=== PATIENT | female | born 1965 | race Caucasian/White ===

== ENCOUNTER 2018-11-06 06:35 | Emergency (ER) | payer SELFPAY ==
[~2018-11-06] VITALS: Ht 160 cm; Wt 74.5 kg
[2018-11-06] MEDS ORDERED: GABAPENTIN 300MG CAPSULE PO STA (07:28)
[2018-11-06] MEDS ORDERED: GLIPIZIDE XL 2.5MG TABLET PO ONE (07:30)
[2018-11-06 09:34] VITALS: BP 138/54
== END 2018-11-06 09:34 | disposition home or self-care (01) ==
LOC: ER 06:35
DX: G57.93 Unspecified mononeuropathy of bilateral lower limbs (principal); Z76.0 Encounter for issue of repeat prescription; E11.9 Type 2 diabetes mellitus without complications; E78.00 Pure hypercholesterolemia, unspecified; I10 Essential (primary) hypertension; Z98.890 Other specified postprocedural states; Z87.891 Personal history of nicotine dependence
CPT/HCPCS: 99283

== ENCOUNTER 2019-04-25 11:35 | Emergency (ER) | payer SELFPAY ==
[~2019-04-25] VITALS: Ht 160 cm; Wt 78.0 kg
[2019-04-25] MEDS ORDERED: IBUPROFEN 600MG TABLET PO ONE (14:00)
[2019-04-25] MEDS ORDERED: ACETAMINOPHEN 325MG TABLET PO ONE (14:00)
[2019-04-25 15:44] VITALS: BP 137/69
== END 2019-04-25 15:47 | disposition home or self-care (01) ==
LOC: ER 11:35
DX: M79.672 Pain in left foot (principal); M79.671 Pain in right foot; M72.2 Plantar fascial fibromatosis; E11.9 Type 2 diabetes mellitus without complications; E78.00 Pure hypercholesterolemia, unspecified; I10 Essential (primary) hypertension
CPT/HCPCS: 73630; 82962; 99283